=== PATIENT | male | born 1955 | race Caucasian/White ===

== ENCOUNTER 2023-04-20 12:13 | Inpatient (IN) ==
[2023-04-20] MEDS ORDERED: LABETALOL HCL IV 5 MG/ML 20ML IV STA ×2 (12:50→18:25)
--- NOTE | 2023-04-20 12:50 | Emergency Department Note ---
Impression & Plan Brain TIA, Carotid stenosis, bilateral, Stroke-like symptoms, Hypertensive emergency ED Provider Note Provider: Alex Lomas MD DATE OF SERVICE: 04/20/2023 CHIEF COMPLAINT: Right leg weakness and fall to ground. HISTORY OF PRESENT ILLNESS: Patient is a 67-year-old gentleman states he does not have medical problems but does not go to the doctor presenting here today after an episode at [facility]. Was going to pump gas in his vehicle when he says he suddenly got some weakness in his right leg and went to the ground. Reports that he did not pass out was awake but according to bystanders did not respond very well for several minutes to questioning. States he was slowly able to get back up and better but ambulance and brought here. States he is otherwise been feeling fairly well recently. Denies issues with the right leg before. Denies any pain before earlier or now anywhere. Specifically denies headache or pain in the right leg. Denies numbness or tingling earlier or now. States he is feeling back to baseline. States he does live by himself and is estranged from family. States he does not go to the doctor. Denies falling and hitting head today. PAST MEDICAL HISTORY: As noted above MEDICATIONS: No home medications SOCIAL HISTORY: Is a smoker PHYSICAL EXAM: GENERAL: alert and oriented in no acute distress on stretcher Head: normocephalic and atraumatic EYES: No injection, discharge or icterus. PERRL, EOMI. NECK: Trachea midline. Supple. ENT: Mucous membranes pink and moist. Pharynx without erythema or exudate. LUNGS: Airway patent. No retractions. Breath sounds clear with good air entry bilaterally. HEART: Regular rate and rhythm. No chest wall tenderness ABDOMEN: Soft and non-tender, without guarding or rebound. SKIN: Acyanotic, warm, dry, without rashes EXTREMITIES: Without swelling, tenderness or deformity NEUROLOGICAL: No focal deficits. No aphasia. No facial droop or slurred speech. Tongue midline. Normal strength and tone in the extremities. Sensation to gross touch normal. Ambulatory without issue in the room. EK bpm normal sinus rhythm. No PVC or PAC. No acute ST segment elevation or depression with a QTc of 444. CONTINUOUS CARDIAC MONITORING: was ordered and showed a heart rate of 80s-90s bpm in normal sinus rhythm Patient's laboratory studies and imaging reviewed. Differential includes Infection, dehydration, metabolic abnormality, hypo/hyperglycemia, electrolyte disturbance, anemia, hypoxia, cardiac sources, intracerebral event, toxicologic, neurologic, as well as other pathologies. IMPRESSION/MEDICAL DECISION MAKING: Patient with an episode of weakness causing to down to the ground reportedly with a period where maybe he was not as responsive but he denies LOC to me. Denies any pain. Keenly awake and ambulatory here. Had one episode where it took maybe 10 seconds for him to come up with what he wanted to say but denies significant aphasia. No facial droop. Is severely hypertensive discussed with his immobility [place] all. Does not follow with a doctor. Basic blood work obtained here with his consent. No significant anemia or leukocytosis. Doubt this is infectious and denies fever. Denies chest pain or palpitations. EKG and troponin are reassuring and I doubt this is ACS. No significant lecture light abnormality. No evidence of renal dysfunction. TSH mildly abnormal but not severe. Doubt myxedema coma. Urinalysis negative. Did complete prolactin which is not significant elevated and lower suspicion this is seizure especially in light of the fact that he denies any LOC. There is no history of seizure. CT of the head without evidence of acute bleed or mass noted. CT angiogram of the head and neck without evidence of high-grade stenosis or occlusion however there are multiple mild areas of narrowing and bilateral M1 segments possibly chronic atherosclerotic disease versus underlying low-grade vasculitis. A small saccular aneurysm versus ulcer at the lateral aspect of the aortic arch is noted 18 x 7 mm. High-grade stenosis of the proximal left internal carotid artery greater than 90% is noted likely chronic according to radiology report. 60% stenosis of the right internal carotid artery as described. Will have low suspicion for stroke and question if he may have TIA symptoms or symptoms related to the vascular abnormalities noted here. I doubt acute dissection and again he denies any pain. Discussed my strong recommendation with the patient that he stay for further evaluation. After discussion patient was agreeable for this. Discussed with hospitalist team and per the recommendation an MRI was ordered pending full admission here. Later noted to have continued hypertension rebound and given additional labetalol. Given a chewable aspirin tablet. DIAGNOSIS: Transient aphasia -- strokelike symptoms, TIA, hypertensive emergency, carotid stenosis DISPOSITION: Hospitalist will evaluate Patient was agreeable with this plan. Critical Care I have personally spent 38 minutes of critical care time in the direct management of this patient. This includes bedside care, interpretation of diagnostic studies, and testing, discussion with consultants, patient, and other required patient management activities. These 38 minutes is in excess of all separately billable procedures. Past Med/Surg History Medical History Carotid stenosis, bilateral Tobacco use Allergies Allergies Allergy/AdvReac Type Severity Reaction Status Date / Time No Known Allergies Verified 11/10/09 06:59 Home Meds Home Medications Medication Instructions Recorded Confirmed No Known Home Medications 04/20/23 04/20/23 Results & Data (ED) Vital Signs Vital Signs - 24 hr 04/20/23 12:30 04/20/23 12:32 04/20/23 13:05 Temperature 36.8 C Temperature Source Temporal Artery Scan Pulse Rate 95 H 97 H 88 Pulse Rate [Apical] Respiratory Rate 18 Blood Pressure 218/147 H 219/141 H Blood Pressure [Left Arm] Blood Pressure Mean 170 Blood Pressure Mean [Left Arm] Pulse Oximetry 97 Oxygen Delivery Method Room Air Sepsis Recent Fever Within 48 Hours No Sepsis New/Unexplained Change in Mental Status No Sepsis Action Taken by Nursing No Action Required 04/20/23 13:20 04/20/23 13:31 04/20/23 15:00 Temperature Temperature Source Pulse Rate Pulse Rate [Apical] 89 Respiratory Rate 18 Blood Pressure 173/113 H Blood Pressure [Left Arm] 173/113 H 184/121 H Blood Pressure Mean Blood Pressure Mean [Left Arm] 133 142 Pulse Oximetry 96 Oxygen Delivery Method Room Air Sepsis Recent Fever Within 48 Hours Sepsis New/Unexplained Change in Mental Status Sepsis Action Taken by Nursing 04/20/23 17:14 04/20/23 17:14 Temperature Temperature Source Pulse Rate Pulse Rate [Apical] 78 Respiratory Rate 20 Blood Pressure Blood Pressure [Left Arm] 217/148 H Blood Pressure Mean Blood Pressure Mean [Left Arm] 171 Pulse Oximetry 97 96 Oxygen Delivery Method Room Air Room Air Sepsis Recent Fever Within 48 Hours Sepsis New/Unexplained Change in Mental Status Sepsis Action Taken by Nursing Laboratory Data 04/20/23 12:30 04/20/23 12:30 Lab Results 04/20/23 04/20/23 Range/Units 12:25 12:30 WBC 10.79 (4.8-10.8) K/ul RBC 5.24 (4.70-6.10) M/uL Hgb 16.4 (14.0-18.0) g/dl Hct 49.1 (42.0-52.0) % MCV 93.7 (80.0-100.0) fL MCH 31.3 (25.0-34.0) pg MCHC 33.4 (32.0-36.0) g/dL RDW Std Deviation 44.5 (36.4-46.3) fL RDW Coeff of Akil 13.0 (11.5-14.5) % Plt Count 279 (130-400) K/uL MPV 10.5 (9.4-12.4) fL Immature Gran % (Auto) 0.2 % Neut % (Auto) 46.6 % Lymph % (Auto) 42.0 % [place] % (Auto) 7.2 % Eos % (Auto) 3.1 % Baso % (Auto) 0.9 % Neut # (Auto) 5.03 (1.40-6.50) K/uL Lymph # (Auto) 4.53 H (1.20-3.40) K/uL [place] # (Auto) 0.78 H (0.11-0.59) K/uL Eos # (Auto) 0.33 (0.00-0.50) K/uL Baso # (Auto) 0.10 (0.00-0.20) K/uL Immature Gran # (Auto) 0.02 (0.01-0.20) K/uL PT 10.3 (9.0-12.0) Seconds INR 0.9 (0.9-1.1) Sodium 138 (136-145) mmol/L Potassium 4.4 (3.5-5.1) mmol/L Chloride 102 (98-107) mmol/L Carbon Dioxide 31 (21-32) mmol/L Anion Gap 5 (3-11) BUN 17 (6-23) mg/dl Creatinine 1.01 (0.6-1.4) mg/dl Est Cr Clr Drug Dosing 66.1 ml/min Est GFR ( Amer) 87.6 ml/min Est GFR (Non-Af Amer) 75.5 ml/min BUN/Creatinine Ratio 16.8 (10-20) Glucose 121 H (70-99(Fasting)) mg/dl Calcium 9.9 (8.6-10.3) mg/dl Magnesium 2.1 (1.7-2.4) mg/dl Total Bilirubin 0.4 (0.2-1.0) mg/dl AST 18 (13-39) U/L ALT 23 (7-52) U/L Alkaline Phosphatase 58 (34-104) U/L Troponin I High Sens 9.3 (0-20) pg/ml Total Protein 7.9 (6.0-8.3) gm/dl Albumin 4.5 (3.4-5.0) gm/dl Globulin 3.4 (2.5-4.0) gm/dl Albumin/Globulin Ratio 1.3 (0.9-2) Triglycerides 325 H (0-150) mg/dl Cholesterol 316 H (0-200) mg/dl LDL Cholesterol, Calc 200 mg/dl VLDL Cholesterol, Calc 65 H (0-30) mg/dl HDL Cholesterol 51 mg/dl Cholesterol/HDL Ratio 6.2 H (0-5) TSH 13.073 H (0.300-4.500) uIu/ml Free T4 0.53 L (0.61-1.60) ng/dl Prolactin 7.98 ng/ml Urine Color Yellow Urine Appearance Clear (Clear) Urine pH 6.5 (4.5-7.5) Ur Specific [place] 1.022 (1.000-1.030) Urine Protein Negative (Negative) Urine Glucose (UA) Trace H (Negative) Urine Ketones Negative (Negative) Urine Blood Negative (Negative) Urine Nitrite Negative (Negative) Urine Bilirubin Negative (Negative) Urine Urobilinogen Negative (Negative) Ur Leukocyte Esterase Negative (Negative) Administered Medications Discontinued Medications Aspirin (Aspirin 81 Mg Chew) 324 mg PO NOW STA Stop: 04/20/23 15:37 Last Admin: 04/20/23 15:52 Dose: 324 mg Documented By: MURPHY Ioversol (Optiray 320 500ml) 111 ml IV ONCE ONE Stop: 04/20/23 13:49 Last Admin: 04/20/23 13:52 Dose: 111 ml Documented By: LIZETH Labetalol HCl (Labetalol Hcl Iv 5 Mg/Ml 20ml) 10 mg IV NOW STA Stop: 04/20/23 12:51 Last Admin: 04/20/23 13:05 Dose: 10 mg Documented By: MURPHY Co-signed By: LAURE Imaging Data Radiologist's Impression: Chest X-Ray 04/20/23 12:49 XR chest 1V portable HISTORY: weakness COMPARISON: Chest 11/10/2009. FINDINGS: No pneumothorax. No pleural effusions. Hazy appearance to the right medial lung base remains unchanged. Therefore, this is likely chronic. No new focal lung consolidations to suggest a pneumonia. No evidence for pulmonary edema. The cardiac silhouette is normal in size. There are low lung volumes. IMPRESSION: No significant change compared to the prior study. No acute process. ACT 112: Negative or not required by law. Electronically signed by: Scar Schwartz M.D. 04/20/2023 1:[address] 04/20/23 12:[address] DOSE: HISTORY: transient R leg weakness, severe HTN TECHNIQUE: Multiaxial CT images of the head were performed without the use of intravenous contrast. Automated exposure control was utilized for this study. A dose lowering technique was utilized adhering to the principles of ALARA. Comparison: None. Findings: The paranasal sinuses and mastoid air cells are clear. The calvarium and skull base are intact. There is no mass, hematoma, midline shift, acute infarct. White matter hypodensity is nonspecific but suggestive of microvascular ischemic change. The ventricles and sulci demonstrate mild age-related involutional changes. Impression: No acute intracranial abnormality. Atrophy and microvascular ischemic changes. ACT 112: Negative or not required by law. Electronically signed by: Scar Schwartz M.D. 04/20/2023 2:07 PM Head CTA 04/20/23 12:49 HEAD & NECK CTA HISTORY: transient R leg weakness, severe HTN TECHNIQUE: Multiaxial CT images of the head were performed following the intravenous administration of contrast to evaluate the major cerebral vessels. Multiaxial CT images of the neck were also performed following the intravenous administration of contrast to evaluate the major cervical vessels. 3D/MIP images were also obtained. Sagittal and coronal reformats were reviewed. A dose lowering technique was utilized adhering to the principles of ALARA. COMPARISON: Head CT 04/20/2013. FINDINGS: There is no mass, hematoma, midline shift, or acute infarct. Mild to moderate multifocal narrowing within the distal left vertebral artery. The distal right vertebral artery and basilar artery are widely patent. There is mild multifocal narrowing within the bilateral ACAs without evidence for occlusion. The major dural venous sinuses appear patent. Moderate calcified plaque within the bilateral carotid siphons with mild focal narrowing within the supraclinoid segment of the right ICA. Diminished perfusion of the left intracranial internal carotid artery which is also slightly hypoplastic in comparison to the right. There is mild narrowing within the supraclinoid segment of the left ICA. No evidence for a cerebral aneurysm. No significant stenosis or occlusion within the bilateral MCAs. However, there is mild irregularity within the bilateral M1 segments which could be due to chronic atherosclerotic disease or possibly an underlying low-grade vasculitis. No areas of high-grade stenosis within the major cerebral arteries. The aortic arch and proximal great vessels are widely patent. Small saccular aneurysm versus penetrating ulcer within the lateral aspect of the aortic arch measuring 18 x 7 mm. Mild focal narrowing within the mid left vertebral artery due to mass effect from the adjacent osteophytes within the cervical spine facets. Otherwise, the bilateral vertebral arteries show no significant stenosis, occlusion, or dissection. No significant stenosis within the bilateral common carotid arteries. There is moderate atherosclerotic plaque within the bilateral carotid bifurcations. The bilateral carotid bulbs are suboptimally assessed due to the motion artifact. However, there appears to be high- grade/critical focal stenosis within the proximal left internal carotid artery best seen on image 209 which demonstrates greater than 90% stenosis. Distal to this the left internal carotid artery is small in caliber compared to the right and demonstrates slight diminished perfusion. This is likely chronic. There is approximately 60% focal stenosis within the proximal right internal carotid artery best seen on image 212. The mid to distal right internal carotid artery is widely patent. IMPRESSION: 1. No areas of high-grade stenosis or occlusion within the cerebral arteries. 2. Multifocal areas of mild narrowing within the cerebral arteries as described above. 3. There is also mild irregularity within the bilateral M1 segments which could be due to chronic atherosclerotic disease or possibly an underlying low-grade vasculitis. 4. A small saccular aneurysm versus penetrating ulcer within the lateral aspect of the aortic arch measuring 18 x 7 mm. 5. There is focal high-grade/critical focal stenosis within the proximal left internal carotid artery which demonstrates greater than 90% stenosis. Distal to this the left internal carotid artery is small in caliber compared to the right and demonstrates slight diminished perfusion. This is likely chronic. 6. There is approximately 60% focal stenosis within the proximal right internal carotid artery . 7. Additional findings as described above. ACT 112: Negative or not required by law. Electronically signed by: Scar Schwartz M.D. 04/20/2023 2:18 PM Neck CTA 04/20/23 12:49 HEAD & NECK CTA HISTORY: transient R leg weakness, severe HTN TECHNIQUE: Multiaxial CT images of the head were performed following the intravenous administration of contrast to evaluate the major cerebral vessels. Multiaxial CT images of the neck were also performed following the intravenous administration of contrast to evaluate the major cervical vessels. 3D/MIP images were also obtained. Sagittal and coronal reformats were reviewed. A dose lowering technique was utilized adhering to the principles of ALARA. COMPARISON: Head CT 04/20/2013. FINDINGS: There is no mass, hematoma, midline shift, or acute infarct. Mild to moderate multifocal narrowing within the distal left vertebral artery. The distal right vertebral artery and basilar artery are widely patent. There is mild multifocal narrowing within the bilateral ACAs without evidence for occlusion. The major dural venous sinuses appear patent. Moderate calcified plaque within the bilateral carotid siphons with mild focal narrowing within the supraclinoid segment of the right ICA. Diminished perfusion of the left intracranial internal carotid artery which is also slightly hypoplastic in comparison to the right. There is mild narrowing within the supraclinoid segment of the left ICA. No evidence for a cerebral aneurysm. No significant stenosis or occlusion within the bilateral MCAs. However, there is mild irregularity within the bilateral M1 segments which could be due to chronic atherosclerotic disease or possibly an underlying low-grade vasculitis. No areas of high-grade stenosis within the major cerebral arteries. The aortic arch and proximal great vessels are widely patent. Small saccular aneurysm versus penetrating ulcer within the lateral aspect of the aortic arch measuring 18 x 7 mm. Mild focal narrowing within the mid left vertebral artery due to mass effect from the adjacent osteophytes within the cervical spine facets. Otherwise, the bilateral vertebral arteries show no significant stenosis, occlusion, or dissection. No significant stenosis within the bilateral common carotid arteries. There is moderate atherosclerotic plaque within the bilateral carotid bifurcations. The bilateral carotid bulbs are suboptimally assessed due to the motion artifact. However, there appears to be high- grade/critical focal stenosis within the proximal left internal carotid artery best seen on image 209 which demonstrates greater than 90% stenosis. Distal to this the left internal carotid artery is small in caliber compared to the right and demonstrates slight diminished perfusion. This is likely chronic. There is approximately 60% focal stenosis within the proximal right internal carotid artery best seen on image 212. The mid to distal right internal carotid artery is widely patent. IMPRESSION: 1. No areas of high-grade stenosis or occlusion within the cerebral arteries. 2. Multifocal areas of mild narrowing within the cerebral arteries as described above. 3. There is also mild irregularity within the bilateral M1 segments which could be due to chronic atherosclerotic disease or possibly an underlying low-grade vasculitis. 4. A small saccular aneurysm versus penetrating ulcer within the lateral aspect of the aortic arch measuring 18 x 7 mm. 5. There is focal high-grade/critical focal stenosis within the proximal left internal carotid artery which demonstrates greater than 90% stenosis. Distal to this the left internal carotid artery is small in caliber compared to the right and demonstrates slight diminished perfusion. This is likely chronic. 6. There is approximately 60% focal stenosis within the proximal right internal carotid artery . 7. Additional findings as described above. ACT 112: Negative or not required by law. Electronically signed by: Scar Schwartz M.D. 04/20/2023 2:18 PM Brain MRI 04/20/23 16:10 Brain MRI WITHOUT CONTRAST HISTORY: tia, aphasia TECHNIQUE: Multiplanar multisequence MRI of the brain was performed without the use of contrast. COMPARISON STUDY: Head CT 04/20/2023. FINDINGS: There is no mass, hematoma, midline shift, or acute infarct. The paranasal sinuses are clear. The mastoid air cells are clear. The ventricles and sulci demonstrate mild age-related involutional changes. Scattered foci of T2 hyperintensity seen within the periventricular and subcortical white matter are nonspecific but suggestive of mild microvascular ischemic changes. The major vascular flow voids at the skull base are well-maintained. IMPRESSION: No acute intracranial abnormality. Scattered foci of T2 hyperintensity seen within the periventricular and subcortical white matter are nonspecific but favor microvascular ischemic change. ACT 112: Negative or not required by law. Electronically signed by: Scar Schwartz M.D. 04/20/2023 5:48 PM Discharge Plan Visit Data Chief Complaint: Illness Stated Complaint: LEG WEAKNESS, HTN, ED Provider: Alex Lomas Discharge Problem: Brain TIA, Carotid stenosis, bilateral, Stroke-like symptoms, Hypertensive emergency Patient Disposition: Admitted As Inpatient Discharge Instructions Interventions: ED Discharge Assessment Last Done: 04/20/23 18:18 Forms Stand Alone Forms: My [facility] [employer] Prescriptions Prescriptions: No Action No Known Home Medications Referrals Referrals: PCP,NO [Primary Care Provider] -
[2023-04-20 13:04] LABS: Appearance Urine Clear (Clear); Bilirubin Urine Negative (Negative); Blood Urine Negative (Negative); Color Urine Yellow; Glucose Urine UA Trace (Negative); Ketones Urine Negative (Negative); Leukocyte Esterase Urine Negative (Negative); Nitrite Urine Negative (Negative); Protein Urine Negative (Negative); Specific Gravity Urine 1.022 (1.000-1.030); Urobilinogen Urine Negative (Negative); pH Urine 6.5 (4.5-7.5)
[2023-04-20 13:05] LABS: Basophils % (auto) 0.9 %; Eosinophils # (auto) 0.33 K/uL (0.00-0.50); Eosinophils % (auto) 3.1 %; Hematocrit (blood only) 49.1 % (42.0-52.0); Hemoglobin 16.4 g/dl (14.0-18.0); Immature Granulocytes # (auto) 0.02 K/uL (0.01-0.20); Immature Granulocytes % (auto) 0.2 %; Lymphocytes # (auto) 4.53 K/uL (1.20-3.40); Mean Corpuscular Hemoglobin 31.3 pg (25.0-34.0); Mean Corpuscular Hgb Conc 33.4 g/dL (32.0-36.0); Mean Corpuscular Volume 93.7 fL (80.0-100.0); Mean Platelet Volume 10.5 fL (9.4-12.4); Monocytes # (auto) 0.78 K/uL (0.11-0.59); Monocytes % (auto) 7.2 %; Neutrophils # (auto) 5.03 K/uL (1.40-6.50); Neutrophils % (auto) 46.6 %; Platelet Count 279 K/uL (130-400); RDW Standard Deviation 44.5 fL (36.4-46.3); Red Blood Count 5.24 M/uL (4.70-6.10); White Blood Count 10.79 K/ul (4.8-10.8)
--- NOTE | 2023-04-20 13:07 | XRay Report ---
XR chest 1V portable HISTORY: weakness COMPARISON: Chest 11/10/2009. FINDINGS: No pneumothorax. No pleural effusions. Hazy appearance to the right medial lung base remain s unchanged. Therefore, this is likely chronic. No new focal lung consolidations to suggest a pneumon ia. No evidence for pulmonary edema. The cardiac silhouette is normal in size. There are low lung vol umes. IMPRESSION: No significant change compared to the prior study. No acute process. ACT 112: Negative or not required by law. Electronically signed by: Scar Schwartz M.D. 04/20/2023 1:06 PM
[2023-04-20 13:09] LABS: Albumin Globulin Ratio 1.3 (0.9-2); Albumin Level 4.5 gm/dl (3.4-5.0); BUN Creatinine Ratio 16.8 (10-20); Bilirubin,Total 0.4 mg/dl (0.2-1.0); Calcium 9.9 mg/dl (8.6-10.3); Creatinine Clr Calc Pharmacy 66.1 ml/min; Est GFR (African American) 87.6 ml/min; Est GFR (Non-African American) 75.5 ml/min; Globulin 3.4 gm/dl (2.5-4.0); Magnesium 2.1 mg/dl (1.7-2.4); Potassium 4.4 mmol/L (3.5-5.1); Total Protein 7.9 gm/dl (6.0-8.3)
[2023-04-20 13:15] LABS: Troponin I High Sensitivity 9.3 pg/ml (0-20)
[2023-04-20 13:30] LABS: INR 0.9 (0.9-1.1); Prothrombin Time 10.3 Seconds (9.0-12.0)
[2023-04-20] MEDS ORDERED: OPTIRAY 320 500ml IV ONE (13:48)
[2023-04-20 13:57] LABS: T4 Free Thyroxine 0.53 ng/dl (0.61-1.60)
--- NOTE | 2023-04-20 14:10 | CT Scan Report ---
HEAD CT NONCONTRAST CT DOSE: HISTORY: transient R leg weakness, severe HTN TECHNIQUE: Multiaxial CT images of the head were performed without the use of intravenous contrast. A utomated exposure control was utilized for this study. A dose lowering technique was utilized adheri ng to the principles of ALARA. Comparison: None. Findings: The paranasal sinuses and mastoid air cells are clear. The calvarium and skull base are int act. There is no mass, hematoma, midline shift, acute infarct. White matter hypodensity is nonspecifi c but suggestive of microvascular ischemic change. The ventricles and sulci demonstrate mild age-rela rufino involutional changes. Impression: No acute intracranial abnormality. Atrophy and microvascular ischemic changes. ACT 112: Negative or not required by law. Electronically signed by: Scar Schwartz M.D. 04/20/2023 2:07 PM
--- NOTE | 2023-04-20 14:20 | CT Scan Report ---
HEAD & NECK CTA HISTORY: transient R leg weakness, severe HTN TECHNIQUE: Multiaxial CT images of the head were performed following the intravenous administration o f contrast to evaluate the major cerebral vessels. Multiaxial CT images of the neck were also perform ed following the intravenous administration of contrast to evaluate the major cervical vessels. 3D/ID P images were also obtained. Sagittal and coronal reformats were reviewed. A dose lowering technique was utilized adhering to the principles of ALARA. COMPARISON: Head CT 04/20/2013. FINDINGS: There is no mass, hematoma, midline shift, or acute infarct. Mild to moderate multifocal narrowing wi thin the distal left vertebral artery. The distal right vertebral artery and basilar artery are widel y patent. There is mild multifocal narrowing within the bilateral ACAs without evidence for occlusion . The major dural venous sinuses appear patent. Moderate calcified plaque within the bilateral caroti d siphons with mild focal narrowing within the supraclinoid segment of the right ICA. Diminished perf usion of the left intracranial internal carotid artery which is also slightly hypoplastic in comparis on to the right. There is mild narrowing within the supraclinoid segment of the left ICA. No evidence for a cerebral aneurysm. No significant stenosis or occlusion within the bilateral MCAs. However, th ere is mild irregularity within the bilateral M1 segments which could be due to chronic atherosclerot ic disease or possibly an underlying low-grade vasculitis. No areas of high-grade stenosis within the major cerebral arteries. The aortic arch and proximal great vessels are widely patent. Small saccular aneurysm versus penetr ating ulcer within the lateral aspect of the aortic arch measuring 18 x 7 mm. Mild focal narrowing wi thin the mid left vertebral artery due to mass effect from the adjacent osteophytes within the cervic al spine facets. Otherwise, the bilateral vertebral arteries show no significant stenosis, occlusion, or dissection. No significant stenosis within the bilateral common carotid arteries. There is modera te atherosclerotic plaque within the bilateral carotid bifurcations. The bilateral carotid bulbs are suboptimally assessed due to the motion artifact. However, there appears to be high-grade/critical fo sanjay stenosis within the proximal left internal carotid artery best seen on image 209 which demonstrat es greater than 90% stenosis. Distal to this the left internal carotid artery is small in caliber com pared to the right and demonstrates slight diminished perfusion. This is likely chronic. There is preeti roximately 60% focal stenosis within the proximal right internal carotid artery best seen on image 21 2. The mid to distal right internal carotid artery is widely patent. IMPRESSION: 1. No areas of high-grade stenosis or occlusion within the cerebral arteries. 2. Multifocal areas of mild narrowing within the cerebral arteries as described above. 3. There is also mild irregularity within the bilateral M1 segments which could be due to chronic ath erosclerotic disease or possibly an underlying low-grade vasculitis. 4. A small saccular aneurysm versus penetrating ulcer within the lateral aspect of the aortic arch me asuring 18 x 7 mm. 5. There is focal high-grade/critical focal stenosis within the proximal left internal carotid artery which demonstrates greater than 90% stenosis. Distal to this the left internal carotid artery is sma ll in caliber compared to the right and demonstrates slight diminished perfusion. 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 6. There is approximately 60% focal stenosis within the proximal right internal carotid artery . 7. Additional findings as described above. ACT 112: Negative or not required by law. Electronically signed by: Scar Schwartz M.D. 04/20/2023 2:18 PM
[2023-04-20] MEDS ORDERED: ASPIRIN 81 MG CHEW PO STA (15:36)
--- NOTE | 2023-04-20 15:59 | History & Physical Report ---
Date of Service April 20, 2023 Assessment & Plan (1) Stroke-like symptoms: Plan: Episode of right-sided collapse, and difficulty speaking while pumping gas on the afternoon of 04/20 Patient does not follow with a PCP Current everyday tobacco cigarette smoker Head CT showed NAF Head/neck CTA revealed >90% occlusion of left internal carotid artery Brain MRI ordered, pending TTE with bubble study ordered Neurology consulted Ordered non-fasting lipid panel, pending Aspirin 324 mg and labetalol 10 mg IV given in the ED Allow permissive HTN Lopressor 5 mg IV as needed for SBP >220 or DBP >120 Start on aspirin 81 mg p.o. QAM Start on Plavix 75 mg p.o. QAM Started on atorvastatin 80 mg QAM Non-fasting lipid panel ordered Continuous telemetry monitoring Elevate HOB Patient passed dysphagia screen on arrival; AHA diet Speech therapy eval Neurochecks q4h Fall precautions Seizure precautions PT/OT consulted A.m. CBC, BMP, A1c, fasting lipid panel (2) Carotid stenosis, bilateral: Plan: Neck CTA reveal critical focal stenosis in the proximal left internal carotid artery >90% stenosis ~60% proximal right internal carotid stenosis (3) Tobacco use: Plan: Current everyday tobacco cigarette smoker; 0.5 PPD Recommend smoking cessation counseling/education upon discharge Plan Disposition: Admit to PCU telemetry Full code AHA diet (passed dysphagia screen) VTE PPx: SCDs, Lovenox 40 mg SQ q24h History of Present Illness Chief Complaint: Strokelike symptoms Primary Care Provider: NO PCP Stas is a 67-year-old male with no known PMH. He presented via EMS for strokelike symptoms that developed on 04/20 while the patient was pumping gas outside of [place], [place]. His right leg gave out from under him, and he reports that he dropped to his knee, then lowered himself to the ground. He denies falling, hitting his head, or passing out. No blood thinners. He had difficulty speaking during the event, but denies facial droop. Per bystanders, the patient was awake the entire time, but dazed and not fully responsive to questioning. No ambulatory dysfunction at baseline patient does not follow with a PCP. Patient does not take daily medications. He is a current everyday tobacco cigarette smoker; 0.5 PPD; 20 year history. He endorses occasional alcohol use; 56 drinks/week; beer. He denies vaping, recreational drug use. 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 Patient's BP was 218/147 on arrival. ED course: Labetalol 10 mg IV Aspirin 324 mg p.o. ROS: Patient endorses mild confusion. Patient denies difficulty swallowing, facial droop, changes in vision/taste/smell/hearing, diplopia, headache, chest pain, SOB, pleuritic CP, cough, N/V/D, urinary s/s, burning with urination, blood in the urine or stool, or numbness/tingling/pain down the arms or legs. No PMHx of CVA, DC, DVT/PE, diabetes No past family Hx of DC, CVA, DVT/PE Brother had diabetes Allergies Allergy/AdvReac Type Severity Reaction Status Date / Time No Known Allergies Verified 11/10/09 06:59 Home Medications Medication Instructions Recorded Confirmed Type No Known Home Medications 04/20/23 04/20/23 History Past Med/Surg History Medical History Carotid stenosis, bilateral Tobacco use Review of Systems Review of Systems: See HPI above Physical Exam Physical Exam: General: no acute distress; appears dazed; standing in the room, drinking Coca-[employer] upon entering; heavy breathing; non-toxic appearing; well-nourished; cooperative HEENT: normocephalic, atraumatic; no scleral icterus; PERRLA w/ EOMs intact; moist mucus membrane; vision and hearing intact Neck: supple; no lymphadenopathy; trachea midline; possible L carotid bruit Skin: warm, dry without signs of tenting; no cyanosis; no rashes, bruising, lesions, or erythema noted CV: chest wall NTP; RRR; S1/S2 normal; no murmurs/rubs/gallops; pulses intact and symmetric at radial, DP, and PT Lungs: Mild respiratory distress; symmetrical chest wall expansion; inspiratory wheezing across all lung hernandez B/L ABD: Soft, NTP; BS present; no rebound/guarding; mild distention; negative CVA tenderness MSK: no tics or fasciculations; no edema noted in the LEs b/l; +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; full active ROM of the UE/LEs Neuro: A&Ox3; negative pronator drift; normal mood and affect; fluent speech; sensation grossly intact in the face, UE, and LE b/l via soft touch Results & Data Results & Data Vital Signs (Past 12 Hours) Vital Signs Temp Pulse Pulse Resp BP BP Pulse Ox 04/20/23 15:00 89 18 184/121 H 96 04/20/23 13:31 173/113 H 04/20/23 13:20 173/113 H 04/20/23 13:05 88 219/141 H 04/20/23 12:32 97 H 04/20/23 12:30 36.8 C 95 H 18 218/147 H 97 O2 Del Method 04/20/23 15:00 Room Air 04/20/23 13:31 04/20/23 13:20 04/20/23 13:05 04/20/23 12:32 04/20/23 12:30 Room Air Laboratory Results Abnormal lab results 04/20/23 04/20/23 Range/Units 12:25 12:30 Lymph # (Auto) 4.53 H (1.20-3.40) K/uL [place] # (Auto) 0.78 H (0.11-0.59) K/uL Glucose 121 H (70-99(Fasting)) mg/dl TSH 13.073 H (0.300-4.500) uIu/ml Free T4 0.53 L (0.61-1.60) ng/dl Urine Glucose (UA) Trace H (Negative) Diagnostic Findings Chest X-Ray 04/20/23 12:49 XR chest 1V portable HISTORY: weakness COMPARISON: Chest 11/10/2009. FINDINGS: No pneumothorax. No pleural effusions. Hazy appearance to the right medial lung base remains unchanged. Therefore, this is likely chronic. No new focal lung consolidations to suggest a pneumonia. No evidence for pulmonary edema. The cardiac silhouette is normal in size. There are low lung volumes. IMPRESSION: No significant change compared to the prior study. No acute process. ACT 112: Negative or not required by law. Electronically signed by: Scar Schwartz M.D. 04/20/2023 1:[address] 04/20/23 12:[address] DOSE: HISTORY: transient R leg weakness, severe HTN TECHNIQUE: Multiaxial CT images of the head were performed without the use of intravenous contrast. Automated exposure control was utilized for this study. A dose lowering technique was utilized adhering to the principles of ALARA. Comparison: None. Findings: The paranasal sinuses and mastoid air cells are clear. The calvarium and skull base are intact. There is no mass, hematoma, midline shift, acute infarct. White matter hypodensity is nonspecific but suggestive of microvascular ischemic change. The ventricles and sulci demonstrate mild age-related involutional changes. Impression: No acute intracranial abnormality. Atrophy and microvascular ischemic changes. ACT 112: Negative or not required by law. Electronically signed by: Scar Schwartz M.D. 04/20/2023 2:07 PM Head CTA 04/20/23 12:49 HEAD & NECK CTA HISTORY: transient R leg weakness, severe HTN TECHNIQUE: Multiaxial CT images of the head were performed following the intravenous administration of contrast to evaluate the major cerebral vessels. Multiaxial CT images of the neck were also performed following the intravenous administration of contrast to evaluate the major cervical vessels. 3D/MIP images were also obtained. Sagittal and coronal reformats were reviewed. A dose lowering technique was utilized adhering to the principles of ALARA. COMPARISON: Head CT 04/20/2013. FINDINGS: There is no mass, hematoma, midline shift, or acute infarct. Mild to moderate multifocal narrowing within the distal left vertebral artery. The distal right vertebral artery and basilar artery are widely patent. There is mild multifocal narrowing within the bilateral ACAs without evidence for occlusion. The major dural venous sinuses appear patent. Moderate calcified plaque within the bilateral carotid siphons with mild focal narrowing within the supraclinoid segment of the right ICA. Diminished perfusion of the left intracranial internal carotid artery which is also slightly hypoplastic in comparison to the right. There is mild narrowing within the supraclinoid segment of the left ICA. No evidence for a cerebral aneurysm. No significant stenosis or occlusion within the bilateral MCAs. However, there is mild irregularity within the bilateral M1 segments which could be due to chronic atherosclerotic disease or possibly an underlying low-grade vasculitis. No areas of high-grade stenosis within the major cerebral arteries. The aortic arch and proximal great vessels are widely patent. Small saccular aneurysm versus penetrating ulcer within the lateral aspect of the aortic arch measuring 18 x 7 mm. Mild focal narrowing within the mid left vertebral artery due to mass effect from the adjacent osteophytes within the cervical spine facets. Otherwise, the bilateral vertebral arteries show no significant stenosis, occlusion, or dissection. No significant stenosis within the bilateral common carotid arteries. There is moderate atherosclerotic plaque within the bilateral carotid bifurcations. The bilateral carotid bulbs are suboptimally assessed due to the motion artifact. However, there appears to be high- grade/critical focal stenosis within the proximal left internal carotid artery best seen on image 209 which demonstrates greater than 90% stenosis. Distal to this the left internal carotid artery is small in caliber compared to the right and demonstrates slight diminished perfusion. This is likely chronic. There is approximately 60% focal stenosis within the proximal right internal carotid artery best seen on image 212. The mid to distal right internal carotid artery is widely patent. IMPRESSION: 1. No areas of high-grade stenosis or occlusion within the cerebral arteries. 2. Multifocal areas of mild narrowing within the cerebral arteries as described above. 3. There is also mild irregularity within the bilateral M1 segments which could be due to chronic atherosclerotic disease or possibly an underlying low-grade vasculitis. 4. A small saccular aneurysm versus penetrating ulcer within the lateral aspect of the aortic arch measuring 18 x 7 mm. 5. There is focal high-grade/critical focal stenosis within the proximal left internal carotid artery which demonstrates greater than 90% stenosis. Distal to this the left internal carotid artery is small in caliber compared to the right and demonstrates slight diminished perfusion. This is likely chronic. 6. There is approximately 60% focal stenosis within the proximal right internal carotid artery . 7. Additional findings as described above. ACT 112: Negative or not required by law. Electronically signed by: Scar Schwartz M.D. 04/20/2023 2:18 PM Neck CTA 04/20/23 12:49 HEAD & NECK CTA HISTORY: transient R leg weakness, severe HTN TECHNIQUE: Multiaxial CT images of the head were performed following the intravenous administration of contrast to evaluate the major cerebral vessels. Multiaxial CT images of the neck were also performed following the intravenous administration of contrast to evaluate the major cervical vessels. 3D/MIP images were also obtained. Sagittal and coronal reformats were reviewed. A dose lowering technique was utilized adhering to the principles of ALARA. COMPARISON: Head CT 04/20/2013. FINDINGS: There is no mass, hematoma, midline shift, or acute infarct. Mild to moderate multifocal narrowing within the distal left vertebral artery. The distal right vertebral artery and basilar artery are widely patent. There is mild multifocal narrowing within the bilateral ACAs without evidence for occlusion. The major dural venous sinuses appear patent. Moderate calcified plaque within the bilateral carotid siphons with mild focal narrowing within the supraclinoid segment of the right ICA. Diminished perfusion of the left intracranial internal carotid artery which is also slightly hypoplastic in comparison to the right. There is mild narrowing within the supraclinoid segment of the left ICA. No evidence for a cerebral aneurysm. No significant stenosis or occlusion within the bilateral MCAs. However, there is mild irregularity within the bilateral M1 segments which could be due to chronic atherosclerotic disease or possibly an underlying low-grade vasculitis. No areas of high-grade stenosis within the major cerebral arteries. The aortic arch and proximal great vessels are widely patent. Small saccular aneurysm versus penetrating ulcer within the lateral aspect of the aortic arch measuring 18 x 7 mm. Mild focal narrowing within the mid left vertebral artery due to mass effect from the adjacent osteophytes within the cervical spine facets. Otherwise, the bilateral vertebral arteries show no significant stenosis, occlusion, or dissection. No significant stenosis within the bilateral common carotid arteries. There is moderate atherosclerotic plaque within the bilateral carotid bifurcations. The bilateral carotid bulbs are suboptimally assessed due to the motion artifact. However, there appears to be high- grade/critical focal stenosis within the proximal left internal carotid artery best seen on image 209 which demonstrates greater than 90% stenosis. Distal to this the left internal carotid artery is small in caliber compared to the right and demonstrates slight diminished perfusion. This is likely chronic. There is approximately 60% focal stenosis within the proximal right internal carotid artery best seen on image 212. The mid to distal right internal carotid artery is widely patent. IMPRESSION: 1. No areas of high-grade stenosis or occlusion within the cerebral arteries. 2. Multifocal areas of mild narrowing within the cerebral arteries as described above. 3. There is also mild irregularity within the bilateral M1 segments which could be due to chronic atherosclerotic disease or possibly an underlying low-grade vasculitis. 4. A small saccular aneurysm versus penetrating ulcer within the lateral aspect of the aortic arch measuring 18 x 7 mm. 5. There is focal high-grade/critical focal stenosis within the proximal left internal carotid artery which demonstrates greater than 90% stenosis. Distal to this the left internal carotid artery is small in caliber compared to the right and demonstrates slight diminished perfusion. This is likely chronic. 6. There is approximately 60% focal stenosis within the proximal right internal carotid artery . 7. Additional findings as described above. ACT 112: Negative or not required by law. Electronically signed by: Scar Schwartz M.D. 04/20/2023 2:18 PM Code Status & VTE Plan Code Status Full code VTE Prophylaxis Plan VTE Prophylaxis will be ordered: Yes Supervising Physician Co-Signing Physician Notes Patient seen and examined, chart reviewed, case discussed with Scar Valencia PA-C and I agree with the assessment and plan as above except as otherwise noted Labs and images reviewed Stas is a 67-year-old male who presented with EMS for suspected strokelike symptoms with right leg weakness and expressive aphasia versus dysarthria without facial droop. Patient appeared confused to bystanders. At bedside patient endorses that he remembers being confused, still feels somewhat off his baseline. 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 He has no facial asymmetry at bedside. CThead shows no acute stroke, CT angiography shows extensive multivessel vascular disease. There is no high- grade stenosis or occlusion within the cerebral arteries, however he has left ICA greater than percent stenosis, 60% proximal right ICA stenosis, and suspected chronic atherosclerotic disease versus underlying low-grade vasculitis of 1 more likely to be atherosclerotic. Follow-up MRI does not show any acute abnormality, nonspecific scattered T2 changes are suspicious for microvascular ischemic change. Patient is started and continued on dual antiplatelet therapy and received an aspirin load. No acute diffusion abnormality/stroke is seen on MRI, will lower hypertension goal parameters to 180. He has no diagnosed medical problems, but does not follow-up with a physician. Initial dose of enalaprilat given and enalapril daily is continued. Labetalol is on-call for severe for sustained systolic greater than 180. Pt likely has chronic severe untreated hypertension, caution watershed from aggressive drop. TSH is elevated and free T4 is diminished consistent with hypothyroidism, will initiate low-dose Synthroid weight-based 112mcg PO. Repeat TSH/T4 in ~6 weeks. Lipid panel shows uncontrolled LDL of 200. Atorvastatin 80 mg daily. Active tobacco use, cessation recommended. He is agreeable to starting medications as noted, and to followup. Contemplative about tobacco cessation. PG Care Time/CCT Total # of Minutes Spent Total Time Spent with Patient: Total time spent is greater than 50% in coordination of care (as documented) at patient's floor/unit and/or counseling patient: [place] [address] INT INP/OBS CARE MIN Patient Type New Medical Decision Making High Complexity Diagnoses Stroke-like symptoms R29.90 Carotid stenosis, bilateral I65.23 Tobacco use Z72.0
--- NOTE | 2023-04-20 17:49 | Magnetic Resonance Report ---
Brain MRI WITHOUT CONTRAST HISTORY: tia, aphasia TECHNIQUE: Multiplanar multisequence MRI of the brain was performed without the use of contrast. COMPARISON STUDY: Head CT 04/20/2023. FINDINGS: There is no mass, hematoma, midline shift, or acute infarct. The paranasal sinuses are salome r. The mastoid air cells are clear. The ventricles and sulci demonstrate mild age-related involutiona l changes. Scattered foci of T2 hyperintensity seen within the periventricular and subcortical white matter are nonspecific but suggestive of mild microvascular ischemic changes. The major vascular flow voids at the skull base are well-maintained. IMPRESSION: No acute intracranial abnormality. Scattered foci of T2 hyperintensity seen within the periventricula r and subcortical white matter are nonspecific but favor microvascular ischemic change. ACT 112: Negative or not required by law. Electronically signed by: Scar Schwartz M.D. 04/20/2023 5:48 PM
[2023-04-20 18:06] LABS: Chol HDL Ratio 6.2 (0-5)
[2023-04-20] MEDS ORDERED: METOPROLOL TARTRATE 1 MG/ML VIAL IV PRN (18:51)
[2023-04-20] MEDS ORDERED: PHARMACIST DISCHARGE MED REC CONSULT PRN (18:51)
[2023-04-20] MEDS ORDERED: ACETAMINOPHEN 325 MG TAB PO PRN (18:51)
[2023-04-20] MEDS ORDERED: NITROGLYCERIN SL 0.4 MG/TAB TAB SL PRN (18:51)
[2023-04-20] MEDS ORDERED: LABETALOL HCL IV 5 MG/ML 20ML IV PRN ×2 (19:04→19:13)
[2023-04-20] MEDS ORDERED: ENALAPRILAT 1.25 MG in DEXTROSE 5% 25 ML IV ONE (19:30)
[2023-04-20] MEDS ORDERED: ENOXAPARIN INJ 40 MG/0.4 ML SYR SQ SCH (20:00)
--- NOTE | 2023-04-21 06:22 | Electrocardiogram Report ---
Test Reason : Blood Pressure : / mmHG Vent. Rate : 098 BPM Atrial Rate : 098 BPM P-R Int : 178 ms QRS Dur : 076 ms QT Int : 348 ms P-R-T Axes : 037 028 -08 degrees QTc Int : 444 ms Normal sinus rhythm Inferior infarct , age undetermined Cannot rule out Anterior infarct , age undetermined Abnormal ECG When compared with ECG of 09-NOV-2009 23:11, Inferior infarct is now Present Nonspecific T wave abnormality no longer evident in Lateral leads Confirmed by Noe Madden ([id number]) on 04/21/2023 6:21:41 AM Referred By: REFERRED SELF Confirmed By:Noe Madden
[2023-04-21] MEDS ORDERED: LEVOTHYROXINE SODIUM 112 MCG TABLET PO SCH (06:30)
[2023-04-21] MEDS ORDERED: ASPIRIN 81 MG ECTAB PO SCH (09:00)
[2023-04-21] MEDS ORDERED: CLOPIDOGREL BISULFATE 75 MG TAB PO SCH (09:00)
[2023-04-21] MEDS ORDERED: ATORVASTATIN 40 MG TAB PO SCH (09:00)
[2023-04-21] MEDS ORDERED: ENALAPRIL MALEATE 5 MG TAB PO SCH (09:00)
--- NOTE | 2023-04-21 09:42 | Neurology Consultation ---
Date of Consultation April 21, 2023 Assessment & Plan (1) Brain TIA: (2) Carotid stenosis, bilateral: Plan 67-year-old male with no known past medical history, does not have a PCP, long- term tobacco use, admitted with an episode of of right lower extremity weakness and transient speech difficulty. The symptoms have resolved. No acute process on CT of the head or brain MRI although he does have bilateral carotid stenosis, 90% for the proximal left ICA, 60% for the proximal right ICA. Patient also has diffuse cerebral atherosclerotic disease. I suspect the left ICA stenosis has been symptomatic recently, in the context of his recent presentation. No prior history of amaurosis fugax or other strokelike episodes. He does not have clinical signs or symptoms suggestive of vasculitis. Agree with dual antiplatelet therapy, aspirin 81 mg/day, and clopidogrel 75 mg/ day for the time being. Agree with high intensity statin, Lipitor 80 mg/day. Agree with enalapril as ordered, current blood pressure appropriate. Patient was notably hypertensive at the time of presentation. Patient will need a consultation with vascular surgery as I suspect the proximal 90% left ICA stenosis is symptomatic. Tobacco cessation counseling. Patient will need to establish with a PCP for ongoing monitoring of hypertension, dyslipidemia, smoking cessation. I also note that he seemed a little short of breath and was wheezing a bit during my evaluation of him this morning, he may have either asthma or COPD and may need additional outpatient evaluation in this regard as well. History of Present Illness Reason for Consultation: TIA Requesting Physician: Erik Attending Physician: Romeo Palacios MD History of Present Illness The patient is a 67-year-old male who presented to the emergency department yesterday after a collapse, no loss of consciousness or head injury, indicated that his right leg suddenly felt weak, also recalled having some difficulty with expressive speech at that time. The episode had resolved by the time he was evaluated in the emergency department. No focal deficits were identified on a neurological examination at that time. Patient does not have a primary care physician, thus, no known past medical history other than tobacco use, about 1/2 pack/day for many years. Patient denies a prior history of stroke or TIA. No known history of heart disease. A CT of the head was negative for hemorrhage or acute process. A CTA of the head and neck revealed multifocal cerebral atherosclerotic disease (low-grade vasculitis also considered in the differential), small saccular aneurysm versus penetrating ulcer within the lateral aspect of the aortic arch, and focal high-grade/critical stenosis of the proximal left ICA, greater than 90% as well as a 60% focal stenosis of the proximal right ICA. A brain MRI was negative for acute or subacute infarct. There was evidence of chronic microvascular ischemic disease. I independently reviewed these images. Upon further questioning, patient denies experiencing any episodes of painless monocular vision loss. He denies any prior history of strokelike episodes. He does not complain of headache or neck pain at this time. He does not complain of myalgias. No rash. Allergies Allergy/AdvReac Type Severity Reaction Status Date / Time No Known Allergies Verified 11/10/09 06:59 Home Medications Medication Instructions Recorded Confirmed Type No Known Home Medications 04/20/23 04/20/23 History Patient History Medical History Carotid stenosis, bilateral Tobacco use Social History Smoking Status: Current every day smoker Tobacco Type: Cigarettes Cigarettes Per Day: half pack daily; Do You Dip or Chew Tobacco: No; Tobacco Cessation Education Requested by Patient: No Hx Alcohol Use: Yes Alcohol type: beer Hx Substance Use: No Preferred Language: Croatian Communication Ability: Effective Shop Superintendent Required: No Beliefs That Will Affect Care: None Current Living Situation: Alone Other Information That Helps Us Care for You: No Feels Safe at Home: Yes Safety Concerns: Feels Safe At This Time Assistive Devices: None Review of Systems Constitutional: no fever and no chills Eyes: no blind spots, no diplopia and no eye pain Ear, Nose, Mouth, Throat: no hearing loss Respiratory: no cough and no dyspnea Cardiovascular: no chest pain and no palpitations Gastrointestinal: no nausea and no vomiting Genitourinary: no urinary incontinence Musculoskeletal: no back pain, no neck pain, no joint pain and no myalgia Integumentary: no rash and no lesions Neurologic: as per Subjective / HPI Psychiatric: no depression and no anxiety Hematologic / Lymphatic: no easy bleeding and no easy bruising Exam (Neuro) Constitutional: well developed and well nourished; no acute distress Eyes: normal visual hernandez by confrontation, PERRL, normal accommodation and EOM intact bilaterally Cardiovascular: Vessels: + carotid bruit Neurologic: Oriented to:: Person, Place and Time Memory: Short Term Intact and Remote Intact Attention: Span Intact and Concentration Intact Speech Fluency: negative Dysarthria or Dysfluency Speech Aphasia: negative Aphasia Fund of Knowledge: Current Events, Past History and Vocabulary Cranial Nerves: Normal II, III, IV, , V, VII, VIII, IX, X, XI and XII Motor Strength: Normal Lower Extremities and Normal Upper Extremities Motor Tone: Normal Lower Extremities and Normal Upper Extremities Muscle Bulk/Involuntary Movements: No Involuntary Movements; negative Muscle Atrophy Sensation: Light Touch Intact, Pain/Temperature Intact, Vibration Intact and Proprioception Intact Coordination: Normal; negative Limited Balance, Dysdiadochokinesia, Finger-Nose Abnormal or Heel-Rubi Abnormal Deep Tendon Reflexes: Rt Triceps: 2+, Lt Triceps: 2+, Rt Biceps: 2+, Lt Biceps: 2+, Rt Brachioradialis: 2+, Lt Brachioradialis: 2+, Rt Patellar: 2+, Lt Patellar: 2+, Rt Ankle: 2+ and Lt Ankle: 2+ Gait: Normal Station and Gait Results & Data Vital Signs (Past 12 Hours) Vital Signs Temp Pulse Pulse Resp BP Pulse Ox O2 Del Method 04/21/23 07:51 36.8 C 71 19 134/92 95 Room Air 04/21/23 07:42 88 04/21/23 03:50 36.6 C 64 18 135/91 98 Room Air 04/21/23 00:56 36.9 C 86 18 153/98 H 95 Room Air 04/20/23 22:05 89 Laboratory Results WBC 10.79, hemoglobin 16.4, hematocrit 49.1, platelet count 279, sodium 138, potassium 4.4, BUN 17, creatinine 1.01, glucose 121, magnesium 2.1, AST 18, ALT 23, triglycerides 325, cholesterol 316, LDL 200, HDL 51, TSH 13.073, free T40.[address] of the head, CTA of the head and neck, and brain MRI are as described above, I independently reviewed these images. An electrocardiogram reveals a normal sinus rhythm, 98 bpm. Coding Level of Care Code 05769 INT INP/OBS CARE 3/75MIN Diagnoses Brain TIA G45.9 Carotid stenosis, bilateral I65.23 Time Spent (min) 80
[2023-04-21 10:06] LABS: Basophils # (auto) 0.09 K/uL (0.00-0.20); Basophils % (auto) 1.1 %; Eosinophils # (auto) 0.31 K/uL (0.00-0.50); Eosinophils % (auto) 3.8 %; Hematocrit (blood only) 45.1 % (42.0-52.0); Hemoglobin 14.9 g/dl (14.0-18.0); Immature Granulocytes # (auto) 0.02 K/uL (0.01-0.20); Immature Granulocytes % (auto) 0.2 %; Lymphocytes # (auto) 2.69 K/uL (1.20-3.40); Lymphocytes % (auto) 32.9 %; Mean Corpuscular Hemoglobin 30.7 pg (25.0-34.0); Mean Platelet Volume 10.8 fL (9.4-12.4); Monocytes # (auto) 0.64 K/uL (0.11-0.59); Monocytes % (auto) 7.8 %; Neutrophils # (auto) 4.43 K/uL (1.40-6.50); Neutrophils % (auto) 54.2 %; Platelet Count 252 K/uL (130-400); RDW Coefficient of Variation 13.2 % (11.5-14.5); Red Blood Count 4.85 M/uL (4.70-6.10); White Blood Count 8.18 K/ul (4.8-10.8)
[2023-04-21 10:15] LABS: Blood Urea Nitrogen 13 mg/dl (6-23); Calcium 8.8 mg/dl (8.6-10.3); Carbon Dioxide 28 mmol/L (21-32); Chloride 102 mmol/L (98-107); Chol HDL Ratio 6.2 (0-5); Cholesterol 299 mg/dl (0-200); Creatinine Clr Calc Pharmacy 71.4 ml/min; Est GFR (African American) 96.7 ml/min; Est GFR (Non-African American) 83.5 ml/min; Glucose 150 mg/dl (70-99(Fasting)); HDL Cholesterol 48 mg/dl; LDL Cholesterol Calculated 205 mg/dl; Triglycerides 228 mg/dl (0-150); VLDL Cholesterol 46 mg/dl (0-30)
[2023-04-21 10:44] LABS: Estimated Average Glucose 148 mg/dl; Hemoglobin A1C 6.8 % (4.5-5.6)
[2023-04-21 11:17] LABS: Potassium 4.2 mmol/L (3.5-5.1)
--- NOTE | 2023-04-21 13:41 | XCELERA ---
[id number]
--- NOTE | 2023-04-21 13:51 | Discharge Summary ---
Date of Service April 21, 2023 Admission HPI Per Admitting Provider Stas is a 67-year-old male with no known PMH. He presented via EMS for strokelike symptoms that developed on 04/20 while the patient was pumping gas outside of [place], [place]. His right leg gave out from under him, and he reports that he dropped to his knee, then lowered himself to the ground. He denies falling, hitting his head, or passing out. No blood thinners. He had difficulty speaking during the event, but denies facial droop. Per bystanders, the patient was awake the entire time, but dazed and not fully responsive to questioning. No ambulatory dysfunction at baseline patient does not follow with a PCP. Patient does not take daily medications. He is a current everyday tobacco cigarette smoker; 0.5 PPD; 20 year history. He endorses occasional alcohol use; 56 drinks/week; beer. He denies vaping, recreational drug use. 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 Patient's BP was 218/147 on arrival. ED course: Labetalol 10 mg IV Aspirin 324 mg p.o. ROS: Patient endorses mild confusion. Patient denies difficulty swallowing, facial droop, changes in vision/taste/smell/hearing, diplopia, headache, chest pain, SOB, pleuritic CP, cough, N/V/D, urinary s/s, burning with urination, blood in the urine or stool, or numbness/tingling/pain down the arms or legs. No PMHx of CVA, IL, DVT/PE, diabetes No past family Hx of IL, CVA, DVT/PE Brother had diabetes Principal Diagnosis Transient ischemic attack, hypertension, left carotid stenosis Discharge Exam General-alert and oriented x3, no fevers, no chills HEENT-head atraumatic and normocephalic, pupils equal and reactive to light, extraocular muscles intact Neck-no lymphadenopathy or thyromegaly, trachea midline Chest-clear to auscultation percussion. No rales wheezing or rhonchi Cardiac-regular rate and rhythm, normal S1 and S2 Abdomen-normal bowel sounds, nontender, no hepatosplenomegaly Extremities-no cyanosis, clubbing, or edema Neuro-cranial nerves II through XII intact, motor and sensory function within normal limits, strength symmetrical, no focal deficits Psych-normal affect, normal mood Discharge Data Allergies Allergy/AdvReac Type Severity Reaction Status Date / Time No Known Allergies Verified 11/10/09 06:59 Consultations 04/20/23 15:41 ED Decision to Admit Stat 04/20/23 18:51 Consult Neurology Routine 04/21/23 09:04 Consult Vascular Surgery Routine Ordered Studies 04/20/23 12:49 CT angio head w con Stat CT angio neck with con Stat CT head/brain wo con Stat 04/20/23 16:10 MR brain wo con Stat 04/21/23 11:06 Carotid duplex [US carotid doppler BI] Routine Hospital Course (1) Stroke-like symptoms: No CVA seen on MRI scan. His neurologic symptoms have resolved. Brain MRI scan negative for CVA. Neurology consultation and recommendations noted. This appears to be a TIA. He is now on blood pressure control measures, atorvastatin, aspirin, clopidogrel. Vascular surgery consultation is pending to address the left ICA stenosis. Nursing staff informed to contact case management to arrange PCP follow-up. (2) Carotid stenosis, bilateral: Neck CTA reveal critical focal stenosis in the proximal left internal carotid artery >90% stenosis, ~60% proximal right internal carotid stenosis. He is now on dual antiplatelet therapy and atorvastatin. Vascular surgery will see the patient before he leaves today and will see him in the office as an outpatient for definitive intervention eventually (3) Tobacco use: Counseled to stop smoking. Plan Home today, April 21, on dual antiplatelet therapy, atorvastatin, metoprolol. Follow-up with vascular surgery as an outpatient for definitive treatment of left ICA stenosis. Total Time Total Time Spent Total Time Spent (In Minutes): 45-minute Discharge Plan Discharge Items Patient Disposition: Home - Self-Care Reason For Visit: STROKE-LIKE SYMPTOMS Discharge Diagnosis: TIA, left carotid stenosis, essential hypertension Activity: Resume your previous activity Non-emergency contact: Primary Care Provider Call non-emergency contact if: you have any medication questions and your symptoms worsen Follow-up/Referrals: Coni Bar CRNP [Nurse Practitioner] - 04/25/23 8:00 am PCPTAYLOR [Primary Care Provider] - Diet: Regular and Heart Healthy Addtl Attending Provider Instructions: Take metoprolol, aspirin, clopidogrel, atorvastatin as directed. Follow-up with primary care provider as scheduled within 1 week. Also follow-up with vascular surgery for definitive treatment of left internal carotid artery blockage. Smoking cessation is recommended Pending Studies at Discharge: No Stand-Alone Forms: My [facility], Smoking Cessation Medications and DC Order Prescriptions: New atorvastatin 40 mg Tablet 80 mg PO QAM Qty: 30 0RF clopidogrel 75 mg Tablet 75 mg PO QAM Qty: 30 0RF metoprolol tartrate 50 mg tablet 50 mg PO BID Qty: 60 0RF aspirin 81 mg Tablet,Delayed Release (Dr/Ec) 81 mg PO QAM Qty: 0 0RF Discharge Orders: Discharge Order (Routine); Ordered 04/21/23 Ordered By: Romeo Palacios Admission Data Admit Date/Time: 04/20/23 16:39 Attending Provider: Romeo Palacios Admit Provider: Carlo Oconnor Primary Care Provider: PCP,NO Other Providers: Carlo Oconnor; Simone Miller; Stas Delgado Coding Level of Care Code 30652 INP/OBS DISCH >30 MIN Diagnoses Stroke-like symptoms R29.90 Carotid stenosis, bilateral I65.23 Tobacco use Z72.0
[2023-04-21] MEDS ORDERED: STROKE PATIENT DISCHARGE STA (13:52)
--- NOTE | 2023-04-21 14:19 | Ultrasound Report ---
ULTRASOUND OF THE CAROTID ARTERIES CLINICAL HISTORY: left hemisphere tia TECHNIQUE: Real-time, grayscale, and color Doppler sonography of the carotid arteries is performed. I mages are reviewed in the transverse and longitudinal planes. COMPARISON: None available at the time of this dictation. FINDINGS: The carotid arteries are patent bilaterally and demonstrate antegrade flow. There is mild atheroscler otic plaque on the right and severe atherosclerotic plaque on the left. Normal doppler arterial wavef orms are seen throughout. Velocity measurements are listed below. Common carotid peak systolic velocity (cm/sec): RIGHT: 71 LEFT: 59 ICA peak systolic velocity (cm/sec): RIGHT: 119 LEFT: 308 ICA/CC peak systolic ratio: RIGHT: 1.7 LEFT: 5.2 Antegrade flow was shown in the vertebral arteries. The external carotid arteries are patent. IMPRESSION: 1. Greater than 70% stenosis of the left internal carotid artery. No significant stenosis is seen on the right. 2. Antegrade flow is shown in the vertebral arteries. Society of Radiologists in Ultrasound consensus guidelines: Normal: ICA PSV is <125 cm/sec and no plaque or intimal thickening is visible sonographically additional criteria include ICA/CCA PSV ratio <2.0 and ICA EDV <40 cm/sec <50% ICA stenosis: ICA PSV is <125 cm/sec and plaque or intimal thickening is visible sonographically additional criteria include ICA/CCA PSV ratio <2.0 and ICA EDV <40 cm/sec 50-69% ICA stenosis: ICA PSV is 125-230 cm/sec and plaque is visible sonographically additional criteria include ICA/CCA PSV ratio of 2.0-4.0 and ICA EDV of 40-100 cm/sec ?70% ICA stenosis but less than near occlusion: ICA PSV is >230 cm/sec and visible plaque and luminal narrowing are seen at [place]-scale and color Dopp ler ultrasound (the higher the Doppler parameters lie above the threshold of 230 cm/sec, the greater the likelihood of severe disease) additional criteria include ICA/CCA PSV ratio >4 and ICA EDV >100 cm/sec ACT 112: Negative or not required by law. Electronically signed by: Alberto Isidro M.D. 04/21/2023 2:17 PM
== END 2023-04-21 16:20 | disposition home or self-care (01) | DRG 69 ==
LOC: ED 12:13 → 2S 16:39 → SUATTDRO 16:39 → 2S 18:18
DX: F17.210 Nicotine dependence, cigarettes, uncomplicated; I65.23 Occlusion and stenosis of bilateral carotid arteries; G45.9 Transient cerebral ischemic attack, unspecified; I10 Essential (primary) hypertension